=== PATIENT | female | born 1995 | race Caucasian/White ===

== ENCOUNTER 2017-02-07 11:30 | Emergency (ER) | payer SELFPAY ==
[~2017-02-07] VITALS: Ht 160 cm; Wt 82.0 kg
[~2017-02-07 11:30] MED LIST: IBUPROFEN600 MG PO; LORTAB 7.57.5 MG PO; PNV PO
[2017-02-07 12:39] LABS: HEMATOCRIT 42.2 % (37.0-47.0); HEMOGLOBIN 14.6 g/dl (12.0-16.0); IMMATURE GRANULOCYTES 0.2 % (0.0-1.0); MEAN CELL VOLUME 89.4 fL CALC (80.0-100.0); MEAN CORPUSCULAR HGB 30.9 pG CALC (26.0-32.0); MEAN CORPUSCULAR HGB CONC 34.6 g/L CALC (32.0-36.0); NEUT# 5.26 thou/uL (2.00-7.15); RED BLOOD COUNT 4.72 mill/uL (4.20-5.60); RED CELL DISTRI WIDTH 12.3 % (11.5-15.5)
[2017-02-07 12:49] LABS: ALBUMIN 4.4 g/dL (3.2-5.0); ALKALINE PHOSPHATASE 86 u/l (38-126); ANION GAP 15 (6-22 (CALC)); BILIRUBIN, TOTAL 0.4 mg/dL (0.0-1.4); BUN 15 mg/dL (8-21); BUN/CREATININE RATIO 25 (12-20 (CALC)); CALCIUM 9.4 mg/dL (8.4-10.2); CARBON DIOXIDE 23 mmol/l (22-30); CHLORIDE 110 mmol/l (95-108); CREATININE 0.6 mg/dL (0.5-1.0); GFR > 60 ML/MIN (>=60 (CALC)); GFR FOR AFR.AMER. > 60 ML/MIN (>=60 (CALC)); GLUCOSE 92 mg/dL (70-106); POTASSIUM 4.3 mmol/l (3.5-5.1); SGOT/AST 22 u/l (14-36); SGPT/ALT 29 u/l (9-52); SODIUM 143 mmol/l (137-146); TOTAL PROTEIN 7.4 g/dL (6.3-8.2)
[2017-02-07 13:01] LABS: URINE BILIRUBIN - DIPSTICK NEGATIVE (NEGATIVE); URINE BLOOD DIPSTICK NEGATIVE (NEGATIVE); URINE COLOR YELLOW; URINE GLUCOSE - DIPSTICK NEGATIVE (NEGATIVE); URINE KETONE NEGATIVE (NEGATIVE); URINE LEUK ESTERASE NEGATIVE (NEGATIVE); URINE PROTEIN - DIPSTICK NEGATIVE (NEG-TRACE); URINE SPECIFIC GRAVITY >=1.030; URINE UROBILINOGEN - DIPSTICK 0.2 E.U./dL (0.2)
[2017-02-07 13:15] LABS: URINE CLARITY HAZY; URINE NITRITE - DIPSTICK POSITIVE (Negative)
[2017-02-07 13:17] LABS: URINE BACTERIA MANY hpf; URINE EPITHELIAL CELLS MODERATE EPI/hpf (0-FEW)
[2017-02-07] MEDS ORDERED: BACTRIM DS1 TAB PO (13:31)
[2017-02-07] MEDS ORDERED: PROVERA10 MG PO (13:31)
[2017-02-07 13:32] VITALS: BP 101/57
== END 2017-02-07 13:37 | disposition home or self-care (01) | DRG 760 ==
LOC: ED 11:30
PROVIDERS: Emergency Medicine
DX: N93.8 Other specified abnormal uterine and vaginal bleeding (principal); N39.0 Urinary tract infection, site not specified; N92.0 Excessive and frequent menstruation with regular cycle

== ENCOUNTER 2017-05-16 14:02 | Emergency (ER) | payer SELFPAY ==
[~2017-05-16] VITALS: Ht 160 cm; Wt 77.0 kg
[~2017-05-16 14:02] MED LIST changes: +BACTRIM DS1 TAB PO; +PROVERA10 MG PO
[2017-05-16 15:34] LABS: URINE BILIRUBIN - DIPSTICK NEGATIVE (NEGATIVE); URINE BLOOD DIPSTICK NEGATIVE (NEGATIVE); URINE CLARITY HAZY; URINE COLOR YELLOW; URINE GLUCOSE - DIPSTICK NEGATIVE (NEGATIVE); URINE KETONE NEGATIVE (NEGATIVE); URINE LEUK ESTERASE NEGATIVE (NEGATIVE); URINE NITRITE - DIPSTICK NEGATIVE (Negative); URINE PH >=9.0 (4.5-8.0); URINE PROTEIN - DIPSTICK NEGATIVE (NEG-TRACE); URINE SPECIFIC GRAVITY 1.015
[2017-05-16] MEDS ORDERED: ULTRAM50 M1 PO (16:03)
[2017-05-16 16:10] VITALS: BP 134/77
== END 2017-05-16 16:10 | disposition home or self-care (01) | DRG 605 ==
LOC: ED 14:02
PROVIDERS: Emergency Medicine
DX: S90.32XA Contusion of left foot, initial encounter (principal); M25.475 Effusion, left foot; R42 Dizziness and giddiness; W17.89XA Other fall from one level to another, initial encounter; Y92.008 Other place in unspecified non-institutional (private) residence as the place of occurrence of the external cause

== ENCOUNTER 2017-12-16 20:38 | Emergency (ER) | payer SELFPAY ==
[~2017-12-16] VITALS: Ht 160 cm; Wt 75.8 kg
[~2017-12-16 20:38] MED LIST changes: +ULTRAM50 M1 PO
[2017-12-16 21:36] LABS: HEMATOCRIT 39.9 % (37.0-47.0); HEMOGLOBIN 14.2 g/dl (12.0-16.0); IMMATURE GRANULOCYTES 0.3 % (0.0-1.0); MEAN CELL VOLUME 89.1 fL CALC (80.0-100.0); MEAN CORPUSCULAR HGB 31.7 pG CALC (26.0-32.0); MEAN CORPUSCULAR HGB CONC 35.6 g/L CALC (32.0-36.0); NEUT# 7.16 thou/uL (2.00-7.15); RED BLOOD COUNT 4.48 mill/uL (4.20-5.60); RED CELL DISTRI WIDTH 11.7 % (11.5-15.5)
[2017-12-16 21:37] LABS: URINE BILIRUBIN - DIPSTICK NEGATIVE (NEGATIVE); URINE BLOOD DIPSTICK NEGATIVE (NEGATIVE); URINE CLARITY CLEAR; URINE COLOR YELLOW; URINE GLUCOSE - DIPSTICK NEGATIVE (NEGATIVE); URINE KETONE 15 mg/dL (NEGATIVE); URINE LEUK ESTERASE NEGATIVE (NEGATIVE); URINE NITRITE - DIPSTICK NEGATIVE (Negative); URINE PH 6.5 (4.5-8.0); URINE PROTEIN - DIPSTICK NEGATIVE (NEG-TRACE)
[2017-12-16 21:39] LABS: BARBITURATES NEGATIVE (NEGATIVE); COCAINE NEGATIVE (NEGATIVE); METHADONE NEGATIVE (NEGATIVE); OXCYCODONE NEGATIVE (NEGATIVE); TETRAHYDROCANNABIONOL NEGATIVE (NEGATIVE); TRICYLIC ANTIDEPRESSANTS NEGATIVE (NEGATIVE)
[2017-12-16 21:50] LABS: ALKALINE PHOSPHATASE 76 u/l (38-126); BILIRUBIN, TOTAL 0.3 mg/dL (0.0-1.4); BUN 13 mg/dL (7-17); BUN/CREATININE RATIO 27 (12-20 (CALC)); CARBON DIOXIDE 22 mmol/l (22-30); CHLORIDE 107 mmol/l (95-108); CREATININE 0.5 mg/dL (0.5-1.0); GFR > 60 ML/MIN (>=60 (CALC)); GFR FOR AFR.AMER. > 60 ML/MIN (>=60 (CALC)); SGOT/AST 20 u/l (14-36); SGPT/ALT 27 u/l (9-52); SODIUM 141 mmol/l (137-146); TOTAL PROTEIN 7.2 g/dL (6.3-8.2)
[2017-12-16 21:54] LABS: ANION GAP 15 (6-22 (CALC)); POTASSIUM 3.4 mmol/l (3.5-5.1)
[2017-12-16 22:42] LABS: BETA-HCG, QUANT(RESULT NUMBER) 29927 mIU/mL
[2017-12-17 00:11] VITALS: BP 115/62
== END 2017-12-16 23:15 | disposition home or self-care (01) | DRG 781 ==
LOC: ED 20:38
PROVIDERS: Emergency Medicine
DX: O26.892 Other specified pregnancy related conditions, second trimester (principal); R10.10 Upper abdominal pain, unspecified; M54.5 Low back pain; O99.332 Smoking (tobacco) complicating pregnancy, second trimester; F17.210 Nicotine dependence, cigarettes, uncomplicated; Z3A.14 14 weeks gestation of pregnancy

== ENCOUNTER 2018-11-10 22:21 | Emergency (ER) | payer SELFPAY ==
[~2018-11-10] VITALS: Ht 160 cm; Wt 70.0 kg
[2018-11-10 23:30] VITALS: BP 109/65
== END 2018-11-10 23:32 | disposition home or self-care (01) | DRG 563 ==
LOC: ED 22:21
DX: S93.401A Sprain of unspecified ligament of right ankle, initial encounter (principal); X50.1XXA Overexertion from prolonged static or awkward postures, initial encounter; W18.2XXA Fall in (into) shower or empty bathtub, initial encounter; Y93.E1 Activity, personal bathing and showering; Y92.002 Bathroom of unspecified non-institutional (private) residence as the place of occurrence of the external cause

== ENCOUNTER 2020-02-02 12:18 | Emergency (ER) | payer SELFPAY ==
[~2020-02-02] VITALS: Ht 160 cm; Wt 70.0 kg
[2020-02-02 12:56] LABS: URINE BILIRUBIN - DIPSTICK NEGATIVE (NEGATIVE); URINE BLOOD DIPSTICK NEGATIVE (NEGATIVE); URINE COLOR YELLOW; URINE GLUCOSE - DIPSTICK NEGATIVE (NEGATIVE); URINE KETONE NEGATIVE (NEGATIVE); URINE LEUK ESTERASE NEGATIVE (Negative); URINE NITRITE - DIPSTICK POSITIVE (Negative); URINE PROTEIN - DIPSTICK NEGATIVE (NEG-TRACE); URINE SPECIFIC GRAVITY 1.025
[2020-02-02 13:08] LABS: URINE CLARITY HAZY
[2020-02-02 13:09] LABS: URINE BACTERIA MANY hpf; URINE WBC 0-2 WBC/hpf (0-5)
[2020-02-02 13:13] LABS: HCG SERUM/URINE (NEG/POS) NEGATIVE (NEGATIVE)
[2020-02-02] MEDS ORDERED: AMOXICILLIN875 MG PO (13:23)
[2020-02-02 13:34] VITALS: BP 99/62
--- NOTE | 2020-02-10 12:19 | NUR ---
Patient called for Covid results. Advised patient that results were negative. Patient requested a copy of the results. Verbal consent given via telephone to leave a copy at the dental front office assistant.
== END 2020-02-02 13:34 | disposition home or self-care (01) | DRG 153 ==
LOC: ED 12:18
DX: J02.0 Streptococcal pharyngitis (principal); N39.0 Urinary tract infection, site not specified; F17.200 Nicotine dependence, unspecified, uncomplicated; Z20.828 Contact with and (suspected) exposure to other viral communicable diseases

== ENCOUNTER 2020-07-05 19:36 | Emergency (ER) | payer SELFPAY ==
[~2020-07-05] VITALS: Ht 160 cm; Wt 75.0 kg
[~2020-07-05 19:36] MED LIST changes: +AMOXICILLIN875 MG PO
[2020-07-05 20:26] LABS: HEMATOCRIT 39.7 % (37.0-47.0); HEMOGLOBIN 13.2 g/dl (12.0-16.0); IMMATURE GRANULOCYTES 0.1 % (0.0-5.0); MEAN CORPUSCULAR HGB 31.4 pG CALC (26.0-32.0); MEAN CORPUSCULAR HGB CONC 33.2 g/dL CAL (32.0-36.0); NEUT# 4.51 thou/uL (2.00-7.15); RED BLOOD COUNT 4.2 mill/uL (4.20-5.60)
[2020-07-05 20:27] LABS: MEAN CELL VOLUME 94.5 fL CALC (80.0-100.0)
[2020-07-05 20:30] LABS: URINE BILIRUBIN - DIPSTICK NEGATIVE (NEGATIVE); URINE BLOOD DIPSTICK MODERATE (NEGATIVE); URINE COLOR YELLOW; URINE GLUCOSE - DIPSTICK NEGATIVE (NEGATIVE); URINE KETONE NEGATIVE (NEGATIVE); URINE LEUK ESTERASE NEGATIVE (NEGATIVE); URINE NITRITE - DIPSTICK NEGATIVE (Negative); URINE PH 7.5 (4.5-8.0); URINE PROTEIN - DIPSTICK NEGATIVE (NEG-TRACE); URINE UROBILINOGEN - DIPSTICK >=8.0 E.U./dL (0.2)
[2020-07-05 20:37] LABS: URINE AMORPH SEDIMENT MANY hpf (NONE-FEW); URINE SQUAMOUS EPITHELIAL CELL MODERATE EPI/hpf (0-FEW); URINE WBC 0-2 WBC/hpf (0-5)
[2020-07-05 20:41] LABS: ALBUMIN 4.2 g/dL (3.2-5.0); ALKALINE PHOSPHATASE 88 u/l (38-126); ANION GAP 9 (6-22 (CALC)); BILIRUBIN, TOTAL 0.4 mg/dL (0.0-1.4); BUN 18 mg/dL (7-17); BUN/CREATININE RATIO 29 (12-20 (CALC)); CARBON DIOXIDE 26 mmol/l (22-30); CHLORIDE 107 mmol/l (95-108); CREATININE 0.6 mg/dL (0.5-1.0); GFR > 60 ML/MIN (>=60 (CALC)); GFR FOR AFR.AMER. > 60 ML/MIN (>=60 (CALC)); SGOT/AST 24 u/l (14-36); SODIUM 138 mmol/l (137-146); TOTAL PROTEIN 6.8 g/dL (6.3-8.2)
[2020-07-05 21:09] VITALS: BP 100/59
== END 2020-07-05 21:15 | disposition home or self-care (01) | DRG 948 ==
LOC: ED 19:36
PROVIDERS: Emergency Medicine
DX: R53.1 Weakness (principal); F17.200 Nicotine dependence, unspecified, uncomplicated

== ENCOUNTER 2021-01-30 18:39 | Emergency (ER) | payer SELFPAY | END 2021-01-31 01:26 | disposition left against medical advice (07) | DRG 951 | LOC: ED 18:39 → LWOBS 22:41 | DX: Z53.21 Procedure and treatment not carried out due to patient leaving prior to being seen by health care provider (principal) ==

== ENCOUNTER 2021-03-07 18:34 | Emergency (ER) | payer SELFPAY ==
[~2021-03-07] VITALS: Ht 160 cm; Wt 81.8 kg
[2021-03-07] MEDS ORDERED: AMOXICILLIN875 MG PO ×2 (18:59→19:03)
[2021-03-07] MEDS ORDERED: TRAMADOL HYDROC50 M1 PO ×2 (19:00→19:03)
[2021-03-07 19:17] VITALS: BP 144/82
== END 2021-03-07 19:17 | disposition home or self-care (01) | DRG 159 ==
LOC: ED 18:34
DX: K04.7 Periapical abscess without sinus (principal); F17.210 Nicotine dependence, cigarettes, uncomplicated

== ENCOUNTER 2021-03-09 10:36 | Emergency (ER) | payer SELFPAY ==
[~2021-03-09] VITALS: Ht 160 cm; Wt 81.8 kg
[~2021-03-09 10:36] MED LIST changes: +TRAMADOL HYDROC50 M1 PO
[2021-03-09] MEDS ORDERED: AMOXIL400 MG/52 PO (11:01)
[2021-03-09] MEDS ORDERED: LORTAB 1010 MG PO (11:03)
[2021-03-09 11:13] VITALS: BP 140/89
== END 2021-03-09 11:21 | disposition home or self-care (01) | DRG 159 ==
LOC: ED 10:36
DX: K04.7 Periapical abscess without sinus (principal); F17.210 Nicotine dependence, cigarettes, uncomplicated

== ENCOUNTER 2021-04-10 17:10 | Emergency (ER) | payer SELFPAY ==
[~2021-04-10] VITALS: Ht 160 cm; Wt 79.0 kg
[~2021-04-10 17:10] MED LIST changes: +AMOXIL400 MG/52 PO; +LORTAB 1010 MG PO
[2021-04-10 17:43] LABS: URINE BLOOD DIPSTICK LARGE (NEGATIVE); URINE COLOR YELLOW; URINE GLUCOSE - DIPSTICK 100 mg/dL (NEGATIVE); URINE KETONE >=80 mg/dL (NEGATIVE); URINE LEUK ESTERASE NEGATIVE (NEGATIVE); URINE PROTEIN - DIPSTICK 30 mg/dL (NEG-TRACE); URINE SPECIFIC GRAVITY >=1.030
[2021-04-10 17:46] LABS: URINE BILIRUBIN - DIPSTICK NEGATIVE (NEGATIVE); URINE NITRITE - DIPSTICK NEGATIVE (Negative)
[2021-04-10 17:51] LABS: URINE SQUAMOUS EPITHELIAL CELL MANY EPI/hpf (0-FEW)
[2021-04-10 18:27] LABS: HEMATOCRIT 40.2 % (37.0-47.0); HEMOGLOBIN 13.5 g/dl (12.0-16.0); IMMATURE GRANULOCYTES 0.1 % (0.0-5.0); MEAN CELL VOLUME 91.2 fL CALC (80.0-100.0); MEAN CORPUSCULAR HGB 30.6 pG CALC (26.0-32.0); MEAN CORPUSCULAR HGB CONC 33.6 g/dL CAL (32.0-36.0); NEUT# 5.92 thou/uL (2.00-7.15); RED BLOOD COUNT 4.41 mill/uL (4.20-5.60); RED CELL DISTRI WIDTH 12.9 % (11.5-15.5)
[2021-04-10 18:51] LABS: ALBUMIN 4.3 g/dL (3.2-5.0); ALKALINE PHOSPHATASE 97 u/l (38-126); ANION GAP 16 (6-22 (CALC)); BUN 16 mg/dL (7-17); BUN/CREATININE RATIO 22 (12-20 (CALC)); CARBON DIOXIDE 25 mmol/l (22-30); CHLORIDE 99 mmol/l (95-108); CREATININE 0.7 mg/dL (0.5-1.0); GFR > 60 ML/MIN (>=60 (CALC)); GFR FOR AFR.AMER. > 60 ML/MIN (>=60 (CALC)); POTASSIUM 3.7 mmol/l (3.5-5.1); SGOT/AST 19 u/l (14-36); SODIUM 137 mmol/l (137-146); TOTAL PROTEIN 7.6 g/dL (6.3-8.2)
[2021-04-10 18:52] LABS: BILIRUBIN, TOTAL 0.8 mg/dL (0.0-1.4)
[2021-04-10] MEDS ORDERED: ULTRAM50 MG PO (18:54)
[2021-04-10 19:00] VITALS: BP 135/77
== END 2021-04-10 19:00 | disposition home or self-care (01) | DRG 563 ==
LOC: ED 17:10
DX: S39.012A Strain of muscle, fascia and tendon of lower back, initial encounter (principal); N20.0 Calculus of kidney; F17.210 Nicotine dependence, cigarettes, uncomplicated; X50.0XXA Overexertion from strenuous movement or load, initial encounter; R20.9 Unspecified disturbances of skin sensation